=== PATIENT | male | born 1930 | race Caucasian/White ===

== ENCOUNTER 2017-03-05 03:42 | Inpatient (IN) | payer OTHER ==
[~2017-03-05] VITALS: Ht 180.3 cm; Wt 67.9 kg
[2017-03-05] MEDS ORDERED: SODIUM CHLORIDE 0.9% 1,000 ML IV ONE (03:54)
[2017-03-05 04:48] LABS: HEMATOCRIT 43.1 % (39.2-51.8); HEMOGLOBIN 14.3 g/dL (13.7-18.0); WHITE BLOOD COUNT 11.6 x10^3/uL (3.4-10)
[2017-03-05 04:58] LABS: ASPARTATE AMINO TRANSFERASE 20 U/L (15-37); BLOOD UREA NITROGEN 17 mg/dL (7-18)
[2017-03-05] MEDS ORDERED: ALBUTEROL/IPRATROPIUM 2.5MG/0.5MG, 3 ML NPPB ONE (05:00)
[2017-03-05] MEDS ORDERED: AZITHROMYCIN 500 MG in SODIUM CHLORIDE 0.9% 250 ML IVPB ONE (05:00)
[2017-03-05] MEDS ORDERED: CEFTRIAXONE PMX 1GM/50ML 50 ML IVPB ONE (05:00)
[2017-03-05] MEDS ORDERED: methylPREDNISolone SOD SUCC 125 MG/2 ML IVP ONE (05:00)
[2017-03-05 05:01] LABS: IS PT STATUS REG ER OR PRE ER? YES
[2017-03-05] MEDS ORDERED: CEFTRIAXONE PMX 1GM/50ML 50 ML ONE (05:10)
[2017-03-05] MEDS ORDERED: methylPREDNISolone SOD SUCC 125 MG/2 ML ONE (05:10)
[2017-03-05 07:30] VITALS: BP 94/58
[2017-03-05] MEDS ORDERED: ACETAMINOPHEN 325 MG TABLET PO PRN (08:30)
[2017-03-05] MEDS ORDERED: ONDANSETRON 2MG/ML, 2ML IVPush PRN (08:30)
[2017-03-05] MEDS ORDERED: LABETALOL 5MG/ML, 20ML IVPush PRN (08:30)
[2017-03-05] MEDS ORDERED: DOCUSATE 100 MG CAPSULE PO PRN (08:30)
[2017-03-05] MEDS ORDERED: POLYETHYLENE GLYCOL 17 GM PACKET PO PRN (08:30)
[2017-03-05] MEDS ORDERED: BISACODYL 10 MG SUPP PR PRN (08:30)
[2017-03-05] MEDS ORDERED: FURO40TA6 PO (12:18)
[2017-03-05] MEDS ORDERED: RISP0.5T3 PO (12:18)
[2017-03-05] MEDS ORDERED: DONE10TA14 PO (12:18)
[2017-03-05] MEDS ORDERED: HYDR20TA PO (12:18)
[2017-03-05] MEDS ORDERED: APIX2.5T PO (12:18)
[2017-03-05] MEDS ORDERED: AMLO5TAB4 PO (12:18)
[2017-03-05] MEDS ORDERED: POTA25TA4 PO (12:18)
[2017-03-05] MEDS: SODIUM CHLORIDE 0.9% 1,000 ML IV SCH (13:21)
[2017-03-05 13:30] VITALS: BP 120/63
[2017-03-05] MEDS: DOXYCYCLINE 100 MG in DEXTROSE 5% 250 ML IV SCH (14:09)
[2017-03-05 18:50] VITALS: BP 135/66
[2017-03-05] MEDS: APIXABAN 2.5 MG TABLET PO SCH (20:43)
[2017-03-05] MEDS: HYDROCORTISONE 20 MG TABLET PO SCH (20:43)
[2017-03-05] MEDS ORDERED: K-LYTE 25 MEQ TABLET.EFF PO SCH (21:00)
[2017-03-05] MEDS ORDERED: DONEPEZIL 10 MG TABLET PO SCH (21:00)
[2017-03-05] MEDS ORDERED: RISPERIDONE 0.5 MG TABLET PO SCH (21:00)
[2017-03-06 00:56] VITALS: BP 136/71
[2017-03-06] MEDS: SODIUM CHLORIDE 0.9% 1,000 ML IV SCH (02:43)
[2017-03-06] MEDS: DOXYCYCLINE 100 MG in DEXTROSE 5% 250 ML IV SCH ×2 (02:43→13:50)
[2017-03-06] MEDS ORDERED: CEFTRIAXONE PMX 1GM/50ML 50 ML IV SCH (05:00)
[2017-03-06 05:30] LABS: HEMATOCRIT 33.9 % (39.2-51.8); HEMOGLOBIN 11.4 g/dL (13.7-18.0); WHITE BLOOD COUNT 12.5 x10^3/uL (3.4-10)
[2017-03-06 06:02] LABS: BLOOD UREA NITROGEN 19 mg/dL (7-18)
[2017-03-06 07:53] VITALS: BP 115/65
[2017-03-06] MEDS ORDERED: POTASSIUM CHLORIDE 20 MEQ PACKET PO SCH (08:00)
[2017-03-06] MEDS: HYDROCORTISONE 20 MG TABLET PO SCH (08:13)
[2017-03-06] MEDS: APIXABAN 2.5 MG TABLET PO SCH (08:15)
[2017-03-06] MEDS ORDERED: AMLODIPINE 5 MG TABLET PO SCH (09:00)
[2017-03-06] MEDS ORDERED: DOXY100T PO (14:47)
[2017-03-06] MEDS ORDERED: CEFD300C37 PO (14:47)
[2017-03-06] MEDS ORDERED: LABETALOL 5MG/ML, 20ML IVPush PRN (16:00)
[2017-03-06] MEDS ORDERED: POLYETHYLENE GLYCOL 17 GM PACKET PO PRN (16:00)
[2017-03-06] MEDS ORDERED: ONDANSETRON 2MG/ML, 2ML IVPush PRN (16:00)
[2017-03-06] MEDS ORDERED: BISACODYL 10 MG SUPP PR PRN (16:00)
[2017-03-06] MEDS ORDERED: ACETAMINOPHEN 325 MG TABLET PO PRN (16:00)
[2017-03-06] MEDS ORDERED: APIXABAN 5 MG TABLET PO SCH (21:00)
== END 2017-03-06 16:03 | disposition home or self-care (01) | DRG 177 ==
LOC: ED 06:36 → EDIP 06:44 → EDBD 06:44 → 4NOR 08:10 → 4EST 10:13
PROVIDERS: ADMIT Internal Medicine; ATTEND Family Medicine
DX: J69.0 Pneumonitis due to inhalation of food and vomit (principal); G93.40 Encephalopathy, unspecified; J96.21 Acute and chronic respiratory failure with hypoxia; N17.0 Acute kidney failure with tubular necrosis; E44.0 Moderate protein-calorie malnutrition; E87.1 Hypo-osmolality and hyponatremia; E16.2 Hypoglycemia, unspecified; E86.0 Dehydration; F03.90 Unspecified dementia, unspecified severity, without behavioral disturbance, psychotic disturbance, mood disturbance, and anxiety; Z68.20 Body mass index [BMI] 20.0-20.9, adult; Z51.5 Encounter for palliative care; Z99.81 Dependence on supplemental oxygen
CPT/HCPCS: 36415; 70450; 70553; 71010; 74230; 80048; 80053; 80061; 80307; 81003; 82140; 82436; 82570; 82607; 82746; 83735; 83880; 84100; 84133; 84300; 84443; 84484; 85025; 87040; 93005; 94640; J0456; J0696; J7060; J7620; 92523-GN; G0479; J2930; J7030; J7050